=== PATIENT | female | born 1990 | race Caucasian/White ===

== ENCOUNTER 2020-03-29 17:04 | Emergency (ER) | payer MEDICAID ==
[~2020-03-29] VITALS: Ht 162.6 cm; Wt 129.5 kg
[2020-03-29 17:11] VITALS: BP 142/93; Ht 162.6 cm; Wt 129.5 kg
[2020-03-29] MEDS ORDERED: ULTRAM50 MG PO (18:21)
[2020-03-29] MEDS ORDERED: NAPROSYN500 MG PO (18:21)
== END 2020-03-29 18:40 | disposition home or self-care (01) ==
LOC: D.ER 17:04
DX: M25.512 Pain in left shoulder (principal); S46.012A Strain of muscle(s) and tendon(s) of the rotator cuff of left shoulder, initial encounter; X58.XXXA Exposure to other specified factors, initial encounter